=== PATIENT | male | born 1990 | race Caucasian/White ===

== ENCOUNTER 2023-09-06 22:29 | Emergency (ER) | payer OTHER ==
[~2023-09-06] VITALS: Ht 175.3 cm; Wt 67.3 kg
[2023-09-06 22:44] VITALS: TEMP 97.6; O2SAT 99
[2023-09-06] MEDS: DIPHENHYDRAMINE 50MG/ML VIAL IM ONE (23:30)
[2023-09-07] MEDS ORDERED: FAMO40TA70 MT (00:06)
[2023-09-07] MEDS ORDERED: PRED5TAB48 MT (00:06)
[2023-09-07] MEDS ORDERED: DIPH25TA62 MT (00:06)
[2023-09-07 02:12] VITALS: BP 133/72; PULSE 77; RESP 15
== END 2023-09-07 02:13 | disposition home or self-care (01) ==
LOC: ER 22:29
DX: R21 Rash and other nonspecific skin eruption (principal); Z87.19 Personal history of other diseases of the digestive system; Z98.890 Other specified postprocedural states
CPT/HCPCS: 99283; 96372; 86592; J1200